=== PATIENT | male | born 1945 | race Caucasian/White ===

== ENCOUNTER 2017-12-23 12:05 | Outpatient (CLI) | payer BC ==
--- NOTE | 2017-12-23 14:12 | MRI ---
MRI OF THE CERVICAL SPINE WITHOUT CONTRAST: COMPARISON: None. HISTORY: The patient slipped off a stool in July no active disease has left-sided neck pain since the acci dent. TECHNIQUE: Multiplanar, multisequence MRI images were obtained of the cervical spine without contrast. FINDINGS: Generalized disk desiccation is seen. Anterior osteophytes are seen in the cervical spine. The vert ebral bodies demonstrate normal height and alignment without fracture or subluxation. Visualized cord demonstrates normal signal throughout. The craniocervical junction is unremarkable. The prevertebral and paraspinal soft tissues are unremarkable. C2-3: Unremarkable. C3-4: A small disk-osteophyte complex is seen. Moderate right posterior facet arthrosis. Mild left posterior facet arthrosis. No central canal stenosis. Moderate right and mild left neural foramina l stenosis. C4-5: A moderate disk-osteophyte complex is seen. Mild bilateral posterior facet arthrosis. Modera te central canal stenosis. Mild to moderate bilateral neural foraminal stenosis. C5-6: A moderate disk-osteophyte complex is seen. No posterior facet arthrosis. Moderate central c anal stenosis. Severe right and moderate left neural foraminal stenosis. C6-7: A small generalized concentric disk bulge is seen. No posterior facet arthrosis. Mild centra l canal stenosis. Moderate right and mild left neural foraminal stenosis. C7-T1: Unremarkable. IMPRESSION: Degenerative changes of the cervical spine as above. POS: [facility]
== END 2017-12-23 12:06 | disposition home or self-care (01) ==
LOC: SCSMRI 12:05
PROVIDERS: ATTEND Orthopaedic Surgery
DX: M47.22 Other spondylosis with radiculopathy, cervical region (principal)
CPT/HCPCS: 72141

== ENCOUNTER 2018-08-30 07:48 | Day surgery (SDC) | payer BC ==
[2018-08-29 13:19] VITALS: BMI 28.3
[2018-08-30] MEDS ORDERED: CEFAZOLIN 2 GM/50 ML BAG ONE (08:31)
[2018-08-30 08:41] LABS: #Basophils 0.1 thou/uL (0.0-0.2); #Eosinphils 0.1 thou/uL (0.0-0.7); #Lymphocytes 1.2 thou/uL (1.20-3.40); #Monocytes 0.6 thou/uL (0.11-0.59); #Neutrophils 2.6 thou/uL (1.40-6.50); %Basophils 1.6 % (0.0-1.0); %Eosinophils 2.2 % (0.0-10.0); %Lymphocytes 26.2 % (21.0-51.0); %Monocytes 12.6 % (0.0-10.0); %Neutrophils 57.4 % (42.0-75.0); Hemoglobin 15.8 g/dL (14.0-18.0); Mean Corpuscular HGB CONC 33.6 g/dL (32.0-36.0); Mean Corpuscular Hemoglobin 31.7 pg (27.0-31.0); Mean Corpuscular Volume 94.4 fL (78.0-98.0); Platelet Count 148 thou/uL (130-400); RBC Distribution Width 13.8 % (11.5-14.5); Red Blood Cell (RBC) Count 4.98 mill/uL (4.70-6.10); White Blood Cell (WBC) Count 4.5 thou/uL (4.8-10.8)
[2018-08-30 08:54] LABS: Anion Gap 13 mmol/L (10-20); BUN (Urea Nitrogen) 14 mg/dL (8.4-25.7); Calc. Creatinine Clearance 89 mL/min (70-130); Calcium 8.9 mg/dL (7.8-10.44); Carbon Dioxide 26 mmol/L (23-31); Chloride 104 mmol/L (98-107); Estimated GFR-MDRD 70; Glucose 109 mg/dL (83-110); Potassium 3.3 mmol/L (3.5-5.1); Sodium 140 mmol/L (136-145)
--- NOTE | 2018-08-30 09:04 | RAD ---
CHEST PA AND LATERAL TWO VIEWS History: 73-year-old male with history of preoperative evaluation. Comparison: 12-21-08 FINDINGS: Post underlying sternotomy. Heart size is within normal limits. The lungs are clear. IMPRESSION: Post underlying sternotomy changes. No acute intrathoracic disease. POS: [facility]
[2018-08-30] MEDS ORDERED: Midazolam HCl 2 mg/2 ml Vial ONE (09:09)
[2018-08-30] MEDS ORDERED: Fentanyl 100 MCG/2 ML VIAL ONE ×2 (09:09→10:57)
[2018-08-30] MEDS ORDERED: Bupivacaine HCl 0.5%/Epinephrine 1:200,000/PF 30 ml Vial ONE (10:14)
[2018-08-30] MEDS ORDERED: Bupivacaine PF 0.5% 30 ML VIAL ONE (11:00)
[2018-08-30] MEDS ORDERED: Bacitracin Zinc Ointment 30 gm TUBE ONE (11:00)
[2018-08-30] MEDS ORDERED: Sodium Chloride 0.9% 0 ML ONE (11:00)
[2018-08-30] MEDS ORDERED: Ketorolac Tromethamine 30 MG/ML VIAL ONE (15:51)
--- NOTE | 2018-08-30 21:05 | RAD ---
RIGHT HAND RADIOGRAPHS TWO VIEWS: 08/30/18 PROVIDED CLINICAL HISTORY: ORIF FINDINGS: Multiple fluoroscopic images of the right hand are submitted demonstrating changes of resection of th e trapezium and percutaneous pinning of the thumb and index metacarpal bases. IMPRESSION: As above. POS: [facility]
[2018-08-30] MEDS ORDERED: PROPOFOL 200 MG/20 ML VIAL ONE (21:29)
[2018-08-30] MEDS ORDERED: Dexamethasone 20 MG/5 ML VIAL ONE (21:29)
[2018-08-30] MEDS ORDERED: Ondansetron PF 4 MG/2 ML Vial ONE (21:29)
--- NOTE | 2018-08-31 13:49 | OP ---
DATE OF PROCEDURE: 08/30/2018 PREOPERATIVE DIAGNOSES: 1. Right thumb carpometacarpal osteoarthritis. 2. Right index finger metacarpophalangeal osteoarthritis. FINDINGS: Severe osteoarthritis at all joints with very tight connection between the trapezium and the trapezoid indicative of possible early STT osteoarthritis as well. Complete obliteration of joint surface, metacarpophalangeal joint, 80% loss of chondral surface, carpometacarpal joint. PROCEDURES PERFORMED: 1. Right thumb metacarpophalangeal joint arthroplasty with [employer] #5 silastic implant. 2. C-arm supervision. 3. Synovectomy, metacarpophalangeal joint and at the right thumb. a. Flexor carpi radialis tendon transfer. b. Complete trapeziectomy with joint debridement of trapezial trapezoid joint. 4. Ligament replacement tendon interposition arthroplasty, right thumb carpometacarpal joint. 5. Thumb spica splint application. ESTIMATED BLOOD LOSS: Total approximately 20 mL. TOURNIQUET TIME: 48 minutes up, deflated for 20 minutes and then 75 more minutes. INDICATION: The patient with osteoarthritis of both sides. Failed conservative treatment including multiple injections therapy sessions, splinting and cessation of activity. DESCRIPTION OF PROCEDURE: After successful general LMA technique, the limb was prepped and draped. C-arm was brought into the field, confirmed osteoarthritis of both sites. We focused on the index finger metacarpophalangeal joint first. After exsanguinating the limb and inflating the tourniquet to 250 mmHg pressure, I outlined the zigzag incision with the zig line going off of the center of the metacarpophalangeal joint on the index finger's radial side. We carried this through skin and subcutaneous tissue until we found the release of retinaculum 2 cm distal and 2 cm proximal to the joint, 5 mm from the central tendon slip and there we could see the joint. We opened up the joint capsule. There was a marked synovitis. We performed a formal tenosynovectomy and removal of the portion of the joint. We then were able to visualize the osteoarthritis. A large osteophyte was removed with a rongeur before we made the cut and initially, we made a 5 mm deep cut using the sagittal saw parallel to the joint line in the frontal and sagittal plane of the metacarpal head. Approximately 50% of the collateral ligament was still intact. The other part was tagged with a heavy 3-0 Prolene for later reconstruction. We then made a cut in the sagittal plane along the plantar aspect and removed a 5.5 mm long x 2.5 mm thick area of chondral surface also completely eroded. We then made a 1.5 mm cut with the 90-degree shotgunning of the proximal phalanx articular surface and removed the osteophytes to create a box like effect. We then used a K-wire to find the center of both the proximal phalanx and metacarpal in the frontal sagittal plane, began hand reaming with the starter awl in that same position, which showed excellent seating, and was able to size the patient to a 5. The trial 5 had excellent fit, and then we selected a 5 permanent prosthesis. We then reconnected the radial collateral ligament back to bone, tied it with a 3-0 Prolene and placed the 5 component final inside. We released the tourniquet and obtained hemostasis. There was no instability. Small joint capsular remnant was closed. Retinaculum was reapproximated with an interrupted [id number] 4-0 Prolene in extension. Then, we checked in flexion and no gap formation. Hemostasis was obtained and subcutaneous was closed with a running 4-0 Monocryl and skin reapproximated with 4-0 nylon in interrupted mattress pattern. We then placed a bulky dressing/pad between the first, second, and third proximal phalanx to protect the radial collateral ligament repair and then we outlined zigzag incision to harvest the FCR in the palm, forearm x2 and then a curvilinear hockey-stick incision over the base of the carpometacarpal joint of the thumb. I reinflated the tourniquet after exsanguination of the limb to 250 mmHg pressure. We made our incision through the skin. We protected the radial nerve branches superficially, retracted the abductor pollicis longus both ways as we made our cut in the joint capsule over the trapezium metacarpal thumb base. Here, we saw large osteophytes with erosion as described above and the loss of articular surface. We then freed up the flexor carpi radialis tendon under direct visualization, retracted it gently, and with a large amount of effort, we were able to separate the trapezium from the trapezoid, and removed the arthritic trapezium. Now, we could visualize the thumb base, resected osteophytes and then, with the thumb turned in the plane of the table near parallel to the table, we drilled from the radial side of the bone, 1.5 cm from the base of the thumb on the radial edge and angled towards the chondral surface of diaphyseal base with a 2.5 drill bit. Then we saw the position was excellent and protected the flexor carpi radialis tendon with a 3.5 drill bit and then we used curettes to expand this approximately 1 mm more to give us a 4 mm hole. The hole had excellent wall support on all sides. We then placed the from the radial side and then began the zigzag incision to harvest flexor carpi radialis tendon. was harvested and then brought to the wrist, we removed any excess muscles, and leading edge removed approximately one-third of the diameter and then with a graft needle passed the tendon through the flexor carpi radialis from the ulnar side tunnel radially and then placed on abductor pollicis longus. Here, we put a pin from the first metacarpal to the second metacarpal not violating the carpometacarpal joint either. We then had used to help obtain good anatomic position of the carpometacarpal joint without the trapezium of the thumb, sutured it at times in 6 places; 2 in the periosteum of the thumb at the base, 2 into the abductor pollicis longus, and 2 into the posterior capsule. In the posterior capsule, we placed one long suture with 2 of 3-0 Prolene. Then, we weaved the tendon onto itself and then used the anchovy technique to place the 3-0 in the posterior capsule through the remnant of the flexor carpi radialis tendon to help fill the void created by the trapeziectomy. This was done in excellent fashion with excellent fill and radiographs confirmed that the K-wire from the first metacarpal was in excellent position with appropriate height and position of the first and second kept in mind. We deflated tourniquet, we closed the capsule. We had hemostasis over the area and this was done with a 2-0 Vicryl in interrupted mattress. The skin was reapproximated after bringing the K-wire through the skin from a separate stab wound, bent it and cut it just slightly below the skin. We closed the subcutaneous tissue with a running 4-0 Monocryl and then Steri-Strips, and then we closed the harvest site of flexor carpi radialis tendon before the transfer with 2 sets of 4 x 4 preceding a Monocryl. The patient had it blocked so we did not inject, splint was applied. A thumb spica splint separate from a palmar-based splint out to the level of the base of the nail bed for all the digits to support the MP joint arthroplasty. Job ID: [id number]
== END 2018-08-30 18:00 | disposition home or self-care (01) ==
LOC: SDC 07:48
PROVIDERS: ATTEND Orthopaedic Surgery Hand Surgery
PROC: 0RRU0JZ Replacement of Right Metacarpophalangeal Joint with Synthetic Substitute, Open Approach (ICD-10-PCS; principal; 2018-08-30)
PROC: 0RUS07Z Supplement Right Carpometacarpal Joint with Autologous Tissue Substitute, Open Approach (ICD-10-PCS; principal; 2018-08-30)
PROC: 0LU507Z Supplement Right Lower Arm and Wrist Tendon with Autologous Tissue Substitute, Open Approach (ICD-10-PCS; principal; 2018-08-30)
DX: M18.11 Unilateral primary osteoarthritis of first carpometacarpal joint, right hand (principal); M19.041 Primary osteoarthritis, right hand; M19.031 Primary osteoarthritis, right wrist; K21.9 Gastro-esophageal reflux disease without esophagitis; F32.9 Major depressive disorder, single episode, unspecified; I10 Essential (primary) hypertension; Z79.82 Long term (current) use of aspirin; Z79.899 Other long term (current) drug therapy; Z95.2 Presence of prosthetic heart valve; Z98.890 Other specified postprocedural states
CPT/HCPCS: 71046; 76001; 80048; 85025; C1776; J0670; J1100; J1885; J2250; J2405; J2704; J3010; J3490; S0020

== ENCOUNTER 2021-06-13 07:49 | Outpatient (CLI) | payer BC ==
[2021-06-13 09:40] LABS: INR-International Normal Ratio 0.9; PTT 25.7 sec (22.0-33.0); Prothrombin Time 10.1 sec (9.5-12.1)
[2021-06-13 09:42] LABS: Hemoglobin 13.6 g/dL (13.5-17.5); Mean Corpuscular HGB CONC 34.5 g/dL (32.0-36.0); Mean Corpuscular Hemoglobin 33.3 pg (27.0-33.0); Mean Corpuscular Volume 96.6 fl (81.2-95.1); Mean Platelet Volume 11.5 fl (7.4-10.4); Platelet Count 148 10x3/uL (150-450); Red Blood Cell (RBC) Count 4.08 10x6/uL (4.32-5.72); White Blood Cell (WBC) Count 4.3 10x3/uL (3.5-10.5)
[2021-06-13 09:43] LABS: Anion Gap 15 mmol/L (10-20); BUN (Urea Nitrogen) 18 mg/dL (8.4-25.7); Calc. Creatinine Clearance 0 mL/min (70-130); Calcium 9.9 mg/dL (7.8-10.44); Carbon Dioxide 26 mmol/L (23-31); Chloride 106 mmol/L (98-107); Glucose 104 mg/dL (83-110); Potassium 3.5 mmol/L (3.5-5.1); Sodium 143 mmol/L (136-145)
[2021-06-13 12:02] LABS: Bilirubin Neg (Negative); Blood, Urine Negative (Negative); Clarity Clear (Clear); Glucose, Urine (Dipstick) Normal (Negative); Ketone, Urine Negative (Negative); Leukocyte Negative (Negative); Nitrite Negative (Negative); Protein, Urine (Dipstick) Negative (Neg-Trace)
[2021-06-13 12:30] LABS: Bacteria/HPF None Seen HPF (None Seen); RBC/HPF None Seen HPF (0-3); Squamous Epithelial 0-3 HPF (0-3); WBC/HPF None Seen HPF (0-3)
== END 2021-06-13 07:50 | disposition home or self-care (01) ==
LOC: LABBT 07:49
PROVIDERS: ATTEND Urology
DX: Z01.812 Encounter for preprocedural laboratory examination (principal); N40.0 Benign prostatic hyperplasia without lower urinary tract symptoms
CPT/HCPCS: 80048; 81001; 85027; 85610; 85730; 87086

== ENCOUNTER 2021-06-18 06:05 | Day surgery (SDC) | payer BC ==
[2021-06-17 10:35] VITALS: BMI 29.1
[2021-06-18] MEDS ORDERED: Levofloxacin 500 mg/D5W 100 ml Premix Bag ONE (07:37)
[2021-06-18] MEDS ORDERED: Sodium Chloride 0.9% 100 ML ONE (07:37)
[2021-06-18] MEDS ORDERED: Ampicillin 2 GM VIAL ONE (07:37)
[2021-06-18] MEDS ORDERED: Midazolam HCl 2 mg/2 ml Vial ONE (09:38)
[2021-06-18] MEDS ORDERED: Fentanyl 100 MCG/2 ML VIAL ONE (09:38)
[2021-06-18] MEDS ORDERED: Dexamethasone 20 MG/5 ML VIAL ONE (10:05)
[2021-06-18] MEDS ORDERED: Ondansetron PF 4 MG/2 ML Vial ONE (10:05)
== END 2021-06-18 13:10 | disposition home or self-care (01) ==
LOC: SDC 06:05
PROVIDERS: ATTEND Urology
PROC: 0T7D8DZ Dilation of Urethra with Intraluminal Device, Via Natural or Artificial Opening Endoscopic (ICD-10-PCS; principal; 2021-06-18)
DX: N40.1 Benign prostatic hyperplasia with lower urinary tract symptoms (principal); N13.8 Other obstructive and reflux uropathy; Z79.82 Long term (current) use of aspirin; Z79.899 Other long term (current) drug therapy; Z95.1 Presence of aortocoronary bypass graft; Z95.2 Presence of prosthetic heart valve
CPT/HCPCS: J0290; J1100; J1956; J2250; J2405; J3010; J3490; L8699

== ENCOUNTER → 2022-12-22 | Outpatient (CLI) | payer BC | LOC: SLEEPLAB 19:00 | PROVIDERS: ATTEND Family Medicine | DX: G47.33 Obstructive sleep apnea (adult) (pediatric) (principal); G25.89 Other specified extrapyramidal and movement disorders | CPT/HCPCS: 95810 ==